=== PATIENT | female | born 1965 | race Caucasian/White ===

== ENCOUNTER 2020-01-10 05:44 | Inpatient (IN) ==
[2020-01-10] MEDS ORDERED: CLINDAMYCIN INJ 900 MG in PREMIX 1 EACH IV ONE (06:30)
[2020-01-10] MEDS ORDERED: VANCOMYCIN INJ 1,000 MG in SODIUM CHLORIDE 0.9% 250 ML IV ONE (06:30)
[2020-01-10] MEDS ORDERED: GABAPENTIN 400 MG CAPSULE PO ONE (07:49)
[2020-01-10] MEDS ORDERED: FAMOTIDINE 20 MG TABLET PO ONE (07:49)
[2020-01-10] MEDS ORDERED: ACETAMINOPHEN 500 MG TABLET PO ONE (07:49)
[2020-01-10] MEDS ORDERED: DIAZEPAM 5 MG TABLET PO ONE (07:49)
[2020-01-10] MEDS ORDERED: LACTATED RINGERS 1,000 ML IV SCH (08:00)
[2020-01-10] MEDS ORDERED: DIAZEPAM 5 MG TABLET ONE (08:09)
[2020-01-10] MEDS ORDERED: ACETAMINOPHEN 500 MG TABLET ONE (08:10)
[2020-01-10] MEDS ORDERED: FAMOTIDINE 20 MG TABLET ONE (08:10)
[2020-01-10] MEDS ORDERED: CLINDAMYCIN INJ 50 ML IV ONE (08:17)
[2020-01-10] MEDS ORDERED: VANCOMYCIN 1,000 MG VIAL ONE (08:17)
[2020-01-10] MEDS ORDERED: DEXTROSE 50% 25 GM/50 ML VIAL IV PRN (11:06)
[2020-01-10] MEDS ORDERED: GLUCAGON 1 MG VIAL IM PRN (11:06)
[2020-01-10] MEDS ORDERED: ONDANSETRON 4 MG/2 ML VIAL IV PRN ×2 (11:07→11:36)
[2020-01-10] MEDS ORDERED: MAGNESIUM HYDROXIDE SUSP 30 ML UDCUP PO PRN (11:07)
[2020-01-10] MEDS ORDERED: ZALEPLON 5 MG CAPSULE PO PRN (11:07)
[2020-01-10] MEDS ORDERED: diphenhydrAMINE CAP 25 MG CAPSULE PO PRN (11:07)
[2020-01-10] MEDS ORDERED: MORPHINE 4 MG/1 ML VIAL IV PRN ×2 (11:07)
[2020-01-10 11:10] LABS: Apearance,Urine CLEAR (Clear); Bilirubin,Urine Negative (Negative); Blood, Urine Negative (Negative); Glucose,Urine (UA) Negative (Negative); Ketones,Urine Negative (Negative); Mucus,Urine Occasional /LPF (Occasional); Nitrite,Urine Negative (Negative); Protein,Urine Negative; RBC,Urine 2 /HPF (0-4); Squamous Epithelial Cell,Urine Occasional /HPF (0-10); Urine Color Yellow (Yellow); Urine Specific Gravity 1.021 (1.001-1.035); Urine Urobilinogen < 2.0 EU/DL (0.2-1.0); WBC,Urine <1 /HPF (0-6)
[2020-01-10] MEDS ORDERED: ROPIVACAINE 0.5% 30 ML VIAL ONE (11:12)
[2020-01-10] MEDS ORDERED: HYDROmorphone 2 MG/1 ML VIAL ONE (11:35)
[2020-01-10] MEDS: HYDROmorphone 2 MG/1 ML VIAL IV PRN ×3 (11:35→15:00)
[2020-01-10] MEDS ORDERED: ONDANSETRON 4 MG/2 ML VIAL ONE ×2 (11:35→12:12)
[2020-01-10] MEDS ORDERED: SEVOFLURANE 1 UNIT/15 MINUTE INH ONE (12:10)
[2020-01-10] MEDS ORDERED: fentaNYL 100 MCG/2 ML VIAL ONE (12:11)
[2020-01-10] MEDS ORDERED: MIDAZOLAM 2 MG/2 ML VIAL ONE (12:11)
[2020-01-10] MEDS ORDERED: KETAMINE 500 MG/10 ML VIAL ONE (12:11)
[2020-01-10] MEDS ORDERED: PHENYLEPHRINE 10 MG/1 ML VIAL IV ONE (12:12)
[2020-01-10] MEDS ORDERED: LIDOCAINE 2% 5 ML VIAL ONE (12:12)
[2020-01-10] MEDS ORDERED: propofoL 200 MG/20 ML VIAL IV ONE (12:12)
[2020-01-10] MEDS ORDERED: SODIUM CHLORIDE 0.9% 200 ML IV ONE (12:13)
[2020-01-10] MEDS ORDERED: ROCURONIUM 100 MG/10 ML VIAL IV ONE (12:13)
[2020-01-10] MEDS ORDERED: SUCCINYLCHOLINE 200 MG/10 ML VIAL ONE (12:13)
[2020-01-10] MEDS ORDERED: LACTATED RINGERS 1,000 ML IV ONE (12:13)
[2020-01-10] MEDS: KETOROLAC 30 MG/1 ML VIAL IV SCH ×3 (12:45→22:36)
[2020-01-10] MEDS ORDERED: KETOROLAC 30 MG/1 ML VIAL ONE (12:45)
[2020-01-10] MEDS: LACTATED RINGERS 1,000 ML IV SCH ×2 (13:51→20:54)
[2020-01-10 16:46] LABS: Basophils # 0.1 10*3/uL (0.0-0.2); Basophils % 0.4 % (0.0-0.8); Eosinophils # 0.2 10*3/uL (0.0-0.87); Eosinophils % 1.3 % (0.00-10.9); Hematocrit 33.7 VOL% (35.7-47.0); Hemoglobin 11.1 GM/DL (12.0-16.0); Immature Granulocytes % 0.7 %; Immature Granulocytes Absolute 0.08 #; Lymphocytes # 1.5 10*3/uL (1.4-4.0); Lymphocytes % 13.1 % (21.3-54.2); Mean Corpuscular HGB Conc 32.9 GM/DL (32-36); Mean Corpuscular Volume 94.1 FL (87-102); Mean Platelet Volume 10.6 FL (9.6-12.0); Neutrophils % 75.5 % (38.7-73.9); Platelet Count 257 T/CUMM (130-400); Red Blood Count 3.58 MC/CUMM (3.8-5.5); Red Cell Distribution Width 14.4 % (9.3-17.3); White Blood Count 11.3 T/CUMM (4-12)
[2020-01-10] MEDS: INSULIN LISPRO 100 UNIT/ML SUBCUT SCH ×3 (17:00→22:35)
[2020-01-10] MEDS: CLINDAMYCIN INJ 900 MG in PREMIX 1 EACH IV SCH (17:11)
[2020-01-10 17:20] LABS: Calcium 8.2 MG/DL (8.5-10.1); Osmolality,Calculated 275.1 MOS/KG (273-304)
[2020-01-10] MEDS: metFORMIN 500 MG TABLET PO SCH (22:35)
[2020-01-10] MEDS: DOCUSATE SODIUM 100 MG CAPSULE PO SCH (22:35)
[2020-01-11] MEDS: METOPROLOL TARTRATE 25 MG TABLET PO SCH ×2 (03:25→08:21)
[2020-01-11] MEDS: KETOROLAC 30 MG/1 ML VIAL IV SCH (05:15)
[2020-01-11] MEDS: LACTATED RINGERS 1,000 ML IV SCH (05:16)
[2020-01-11] MEDS ORDERED: CLINDAMYCIN INJ 900 MG in PREMIX 1 EACH IV SCH (05:30)
[2020-01-11] MEDS ORDERED: FONDAPARINUX 2.5 MG/0.5 ML SYRINGE SUBCUT SCH (06:00)
[2020-01-11 06:30] LABS: Basophils % 0.5 % (0.0-0.8); Eosinophils # 0.1 10*3/uL (0.0-0.87); Eosinophils % 1.7 % (0.00-10.9); Hematocrit 34.3 VOL% (35.7-47.0); Hemoglobin 11.2 GM/DL (12.0-16.0); Immature Granulocytes % 0.5 %; Immature Granulocytes Absolute 0.03 #; Lymphocytes # 0.8 10*3/uL (1.4-4.0); Lymphocytes % 12.6 % (21.3-54.2); Mean Corpuscular HGB Conc 32.7 GM/DL (32-36); Mean Platelet Volume 10.9 FL (9.6-12.0); Monocytes % 10.8 % (1.7-12.7); Neutrophils % 73.9 % (38.7-73.9); Platelet Count 229 T/CUMM (130-400); Red Blood Count 3.61 MC/CUMM (3.8-5.5); Red Cell Distribution Width 14.6 % (9.3-17.3); White Blood Count 6.7 T/CUMM (4-12)
[2020-01-11] MEDS: CLINDAMYCIN INJ 900 MG in PREMIX 1 EACH IV SCH (06:44)
[2020-01-11 07:04] LABS: Calcium 8.4 MG/DL (8.5-10.1)
[2020-01-11] MEDS: DOCUSATE SODIUM 100 MG CAPSULE PO SCH (08:21)
[2020-01-11] MEDS: metFORMIN 500 MG TABLET PO SCH (08:22)
[2020-01-11] MEDS: INSULIN LISPRO 100 UNIT/ML SUBCUT SCH ×2 (08:22→12:01)
[2020-01-11] MEDS ORDERED: PANTOPRAZOLE 40 MG TABLET PO SCH (09:00)
[2020-01-11] MEDS ORDERED: NF- (Liraglutide [Victoza 2-Pak] 1.2 MG) SUBCUT SCH (09:00)
[2020-01-11] MEDS ORDERED: amLODIPine 10 MG TABLET PO SCH (09:00)
[2020-01-11 16:00] VITALS: BP 143/60
[2020-01-11] MEDS ORDERED: CELECOXIB 200 MG CAPSULE PO SCH (17:08)
== END 2020-01-11 16:10 | disposition home health service (06) | DRG 470 ==
LOC: N.SDSINP 05:44 → N.3E 15:51
PROVIDERS: ADMIT Orthopaedic Surgery; ATTEND Orthopaedic Surgery